=== PATIENT | female | born 1965 | race Caucasian/White ===

== ENCOUNTER 2022-07-19 14:45 | Outpatient (REF) | payer OTHER, SELFPAY ==
--- NOTE | 2022-07-19 11:00 | PAPFT_PTH ---
PATIENT: Mira Blackwood LOC: [facility]#:[id number] AGE/SX: 56/F ROOM: RE07/19/[address]: Sayra Hernandez : 1965 BED: DIS: 07/19/2022 SPEC #: [id number] RECD: 07/20/22 13:04 STATUS: JAMES HARTMAN #: [id number] NING: 07/19/22 11:[address]: Sayra Hernandez DEPT: [facility] Cytology RECD BY: Latasha Byrne Tissues: 1 - CX/ENDOCX FOR PAP SMEARS Procedures: PAP THIN PREP/UVM Screening HPV DNA PROBE Comments: [id number]
== END 2022-07-19 14:46 | disposition home or self-care (01) ==
LOC: NCHCN 14:45
PROVIDERS: Visit Provider Physician Assistant
DX: Z12.4 Encounter for screening for malignant neoplasm of cervix (principal); Z11.51 Encounter for screening for human papillomavirus (HPV)
CPT/HCPCS: 88142; 87624

== ENCOUNTER 2023-04-10 15:07 | Outpatient (REF) | payer OTHER, SELFPAY ==
[2023-04-10 19:16] LABS: HCT 40.8 % (36.0-46.0); HGB 13.4 g/dL (11.2-15.7); MCH 29.2 pg (27.0-33.0); MCHC 32.8 % (32.0-36.0); MCV 89 fL (80-95); MPV 10.7 fL (8.0-11.0); Platelet Count 255 10^3/uL (130-400); RBC 4.59 10^6/uL (3.93-5.22); RDW 13.1 % (11.7-14.6); RDW-SD 42.5 fL; WBC 6.89 10^3/uL (4.4-10.8)
[2023-04-10 19:42] LABS: ALT 22 U/L (14-59); AST 21 U/L (15-37); Albumin 3.8 g/dL (3.4-5.0); Alkaline Phosphatase 18 U/L (46-116); Anion Gap 11.1 mmol/L (3-11); BUN 14 mg/dL (7-18); Bilirubin, Total 0.3 mg/dL (0.2-1.0); CO2 24.9 mmol/L (21.0-32.0); Calcium 9.7 mg/dL (8.5-10.1); Chloride 103 mmol/L (98-107); Estimated GFR 65.71 (mL/min/1.73m2); Glucose 91 mg/dL (74-106); LDL CHOLESTEROL 142 mg/dL (<100); Potassium 4.2 mmol/L (3.5-5.1); Sodium 139 mmol/L (136-145); Total Protein 7.9 g/dL (6.4-8.2)
[2023-04-10 20:05] LABS: Hemoglobin A1C 5.6 % (<5.7)
== END 2023-04-10 15:08 | disposition home or self-care (01) ==
LOC: NCHCN 15:07
PROVIDERS: PCP Physician Assistant; Visit Provider Physician Assistant
DX: E06.3 Autoimmune thyroiditis (principal); R73.03 Prediabetes; N89.8 Other specified noninflammatory disorders of vagina; R32 Unspecified urinary incontinence
CPT/HCPCS: 80053; 83721; 85027; 83036; 84443; 87480; 87510; 87660

== ENCOUNTER 2024-02-08 15:50 | Outpatient (REF) | payer OTHER, SELFPAY ==
--- OUTSIDE RECORDS SUMMARY | 2024-02-08 15:52 | XMS_ITS | Referral Summary ---
Author Organization [facility] Address [address] [place] [address] Care Team Providers Care Nutrition Technician Name Role Phone Sayra Hernandez Primary Care Provider + Allergies Active Allergy Reactions Criticality Noted Date Comments Adhesive 09/15/2022 Sometimes gets rash with adhesive bandages Medications Medication Sig Dispensed Refills Start Date End Date Status Calcium Carbonate 600 mg calcium (1,500 mg) tablet Take 600 mg by mouth. 08/10/2022 Active MAGNESIUM CARBONATE ORAL Take by mouth. Active multivit with minerals/lutein (MULTIVITAMIN 50 PLUS ORAL) Take by mouth. Active Active Problems No known active problems Social History Tobacco Use Types Packs/Day Years Used Date Smoking Tobacco: Never Smokeless Tobacco: Never Tobacco Cessation:Counseling Given: Not Answered Sex and Gender Information Value Date Recorded Sex Assigned at Not on file Gender Identity Female 07/21/2022 11:30 EST Sexual Orientation Not on file Plan of Treatment Not on file Care Teams Nutrition Technician Relationship Specialty Start Date End Date Sayra Hernandez PA [address] [place] [id number] PCP - General 07/21/22
--- OUTSIDE RECORDS SUMMARY | 2024-02-08 15:52 | XMS_ITS | Encounter Summary ---
Author Organization [facility] Address [address] [place] [address] Care Team Providers Care Policy Adviser Name Role Phone Unavailable Primary Care Provider Unavailabl e Reason for Visit * Reason Onset Date Comments Establish Care 05/04/2022 Encounter Details Date Type Department Care Team (Late st Contact Info) Description 05/04/2022 Telephone [facility] Ophthalmology - Main [address] [address] Unknown, Doctor MD Establish Care Social History Tobacco Use Types Packs/Day Years Used Date Smoking Tobacco: Never Assessed Sex and Gender Information Value Date Recorded Sex Assigned at Not on file Gender Identity Female 07/21/2022 11:30 EST Sexual Orientation Not on file documented as of this encounter Miscellaneous Notes * Telephone Encounter - Meagan Ogden - 05/12/2022 0940 EST Scheduled * Telephone Encounter - Meagan Ogden - 05/10/2022 0843 EST LMOM * Telephone Encounter - Meagan Ogden - 05/10/2022 0743 EST Pt can be seen next available with a general farmworker. Schedule from the referral. * Telephone Encounter - Meagan Ogden - 05/05/2022 0717 EST RAQUEL form has been sent to patient. * Telephone Encounter - Lary Lewis - 05/04/2022 1231 EST Patient called back stating she needs a release form from our office so she can send it to her feather stitcher and retina provider. She has been discharged from her retina provider and is looking to establish care with an feather stitcher. Patient declined to schedule while on the phone stating that Cinthia was going to have her records reviewed by our providers to determine who she should be seen by. Please email the RAQUEL to: [email or web address] * Telephone Encounter - Cinthia Zambrano - 05/04/2022 1214 EST Pt just moved het from [place] and would like to establish care with us. She will get her notes faxed to us. documented in this encounter Plan of Treatment Not on file documented as of this encounter Visit Diagnoses Not on filedocumented in this encounter
--- OUTSIDE RECORDS SUMMARY | 2024-02-08 15:52 | XMS_ITS | Encounter Summary ---
Author Organization [facility] Address [address] [place] [address] Care Team Providers Care Scale Tester Name Role Phone Sayra Hernandez Primary Care Provider + Encounter Details Date Type Department Care Team (Late st Contact Info) Description 07/21/2022 Lab Requisition [facility] Pathology & Laboratory Medicine - [address] [address] Outr Resulting Lab, Provider Social History Tobacco Use Types Packs/Day Years Used Date Smoking Tobacco: Never Assessed Sex and Gender Information Value Date Recorded Sex Assigned at Not on file Gender Identity Female 07/21/2022 11:30 EST Sexual Orientation Not on file documented as of this encounter Plan of Treatment Not on file documented as of this encounter Procedures Procedure Name Priority Date/Time Associated Diagnosis Comments VITAMIN D (25,OH) Routine 07/21/2022 8:21 EST documented in this encounter Results * VITAMIN D (25,OH) (07/21/2022 8:21 EST) 25OH Vitamin D Tot 45 30 - 100 ng/mL 07/24/2022 11:28 EST [facility] Comment: Vitamin D 25,OH Interpretive Ranges: Deficiency: ??<10.0 ng/mL Insufficiency: ??10.0 - 30.0 ng/mL Sufficiency: ??30.0 - 100.0 ng/mL Toxicity: ??>100.0 ng/mL Blood VENOUS BLOOD / Unknown 07/21/2022 8:21 EST 07/21/2022 21:34 EST Provider Outr Resulting Lab CHEMISTRY & BLOOD GAS ORDERABLES [facility] [address] [place] [address] documented in this encounter Visit Diagnoses Not on filedocumented in this encounter Care Teams Scale Tester Relationship Specialty Start Date End Date Sayra Hernandez PA [address] [place] [id number] PCP - General 07/21/22 documented as of this encounter
--- OUTSIDE RECORDS SUMMARY | 2024-02-08 15:52 | XMS_ITS | Encounter Summary ---
Author Organization [facility] Address [address] [place] [address] Care Team Providers Care Liquefied Natural Gas Operator Name Role Phone Sayra Hernandez Primary Care Provider + Encounter Details Date Type Department Care Team (Late st Contact Info) Description 07/21/2022 Lab Requisition [facility] Pathology & Laboratory Medicine - [facility] [address] [place] [address] Sayra Hernandez PA [address] [place], [place] [address] Encounter for other general examination Social History Tobacco Use Types Packs/Day Years Used Date Smoking Tobacco: Never Assessed Sex and Gender Information Value Date Recorded Sex Assigned at Not on file Gender Identity Female 07/21/2022 11:30 EST Sexual Orientation Not on file documented as of this encounter Plan of Treatment Not on file documented as of this encounter Procedures Procedure Name Priority Date/Time Associated Diagnosis Comments PAP TEST Today 07/19/2022 11:00 EST Encounter for other general examination HPV DNA DETECTION WITH GENOTYPING, PCR Today 07/19/2022 11:00 EST Encounter for other general examination documented in this encounter Results * HUMAN PAPILLOMAVIRUS (HPV) DETECTION-HIGH RISK TYPES (07/19/2022 11:00 EST) HPV other High Risk types, PCR Negative Negative 08/07/2022 18:00 EST [facility] Comment:No E6 or E7 mRNA is detected from HPV types 16,18,31,33,35,39,45,51,52,56,58,59,66, and 68 by key account director mediated amplification. Papanicolaou smear specimen (specimen) CERVIX UTERI STRUCTURE / Unknown 07/19/2022 11:00 EST 08/04/2022 11:26 EST Sayra [facility] MICROBIOLOGY - G ENERAL ORDERABLES [facility] [address] [place] [id number] * PAP TEST (07/19/2022 11:00 EST) Specimens A. Cervix and/or Endocervix , ThinPrep Imaging System with Manual Evaluation 08/07/2022 18:00 [facility] Specimen Adequacy Satisfactory for Evaluation - transformation zone component present 08/07/2022 18:00 [facility] General Categorization Negative for intraepithelial lesion or malignancy 08/07/2022 18:00 [facility] Descriptive Diagnosis Reactive cellular changes associated with inflammation present (includes repair). 08/07/2022 18:00 [facility] Attestation By the signature below, the attending physician certifies that they have personally conducted a gross and/or microscopic examination of the described specimens and rendered or confirmed the above diagnosis. 08/07/2022 18:00 [facility] at 1800 Clinical History See below 08/08/19 23 18:00 [facility] HPV The result for the Human Papillomavirus (HPV) Detection-High Risk Types is Negative. No E6 or E7 mRNA is detected from HPV types 16,18,31,33,35,39 ,45,51,52,56,58,5 9,66, and 68 by key account director mediated amplification.Carrie ting was performed on specimen [id number] and was resulted on 08/07/2022 1800 EST by JACKSON, LAB INSTRUMENT RESULTS IN 08/07/2022 18:00 [facility] Performing Lab [facility] 08/07/2022 18:00 EST [facility] Scanned Images 08/07/2022 18:00 EST [facility] Papanicolaou smear specimen (specimen) CERVIX UTERI STRUCTURE / Unknown 07/19/2022 11:00 EST 07/21/2022 12:29 EST Sayra [facility] PATHOLOGY ORDERA BLES Performing Organization Address City/State/[facility] Co de Phone Number [facility] [address] [place] [address] documented in this encounter Visit Diagnoses Diagnosis Encounter for other general examination documented in this encounter Care Teams Liquefied Natural Gas Operator Relationship Specialty Start Date End Date Sayra Hernandez PA [address] [place] [id number] PCP - General 07/21/22 documented as of this encounter
--- OUTSIDE RECORDS SUMMARY | 2024-02-08 15:52 | XMS_ITS | Clinical Summary ---
Author Organization [facility] Address [address] [place] [address] Care Team Providers Care Architectural Intern Name Role Phone Sayra Hernandez Primary Care [...] Active Active Problems No known active problems Surgical History Surgery Date Site/Laterality Comments RETINAL DETACHMENT SURGERY 06/04/2009 - 06/03/2010 Right CATARACT REMOVAL WITH IMPLANT 06/04/2009 - 06/03/2010 Ri ght INTRAOCULAR LENS PROSTHESIS INSERTION Medical History Medical History Date Comments Other states following surgery of eye and adnexa Cataract Family History Medical History Relation Comments Glaucoma Mother Blindness Neg Hx Cataract Neg Hx Macular Degeneration Neg Hx Retinal Detachment Neg Hx Relation Status Comments Mother Social History Tobacco Use Types Packs/Day Years Used Date Smoking Tobacco: Never Smokeless Tobacco: Never Tobacco Cessation:Counseling Given: Not Answered Sex and Gender Information Value Date Recorded Sex Assigned at Not on file Gender Identity Female 07/21/2022 11:30 EST Sexual Orientation Not on file Obstetrics History Plan of Treatment Health Maintenance Due Date Last Done Comments Hepatitis C Screen 1965 Hepatitis B Vaccine (1 of 3 - 19+ 3-dose series) 08/15 COVID-19 Vaccine ( season) 2023 Care Teams Architectural Intern Relationship Specialty Start Date End Date Sayra Hernandez PA [address] [place] [id number] PCP - General 07/21/22
--- OUTSIDE RECORDS SUMMARY | 2024-02-08 15:52 | XMS_ITS | Encounter Summary ---
Author Organization [facility] Address [address] [place] [address] Care Team Providers Care Customer Operations Specialist Name Role Phone Sayra Hernandez Primary Care Provider + Reason for Visit * Reason Comments Follow-up Encounter Details Date Type Department Care Team (Late st Contact Info) Description 09/17/2023 10:15 EDT Office Visit [facility] Ophthalmology - [address] [id number] Isabel Shore MD [address] [place] [address], [address] [place] [address] Social History Tobacco Use Types Packs/Day Years Used Date Smoking Tobacco: Never Smokeless Tobacco: Never Sex and Gender Information Value Date Recorded Sex Assigned at Not on file Gender Identity Female 07/21/2022 11:30 EST Sexual Orientation Not on file documented as of this encounter Progress Notes * Isabel Shore MD - 09/17/2023 1015 EDT Chief Complaint Patient presents with Follow-up HPI F/u OHTN right, hx RD right eye, vision may be a little worse at near, no flashes or floaters, no eye pain, no gtts HPI The patient is a 58 y.o. female not noticing much change to her vision. HO RD right eye after CE Right Eye: Left Eye: Visual Aid: Current Rx Age Location: Pain: 0 - No pain Quality: Severity: Duration: Timing: Lasts: Context: Modifying factors: Associated Signs & Symptoms: Attestation: ROS Constitutional: ENT/Mouth Cardiovascular: Respiratory: Gastrointestinal: Genitourinary: Musculoskeletal: Integumentary: Neurologic: Psychiatric: Endocrine: Hematologic: Immunologic: Braided Rug Maker: Exposures: Other: Attestation: Allergies include: Adhesive There is no problem list on file for this patient. No outpatient medications have been marked as taking for the 09/17/23 encounter (Office Visit) with Isabel Shore MD. Past Medical History: Diagnosis Date Cataract Other states following surgery of eye and adnexa Past Surgical History: Procedure Laterality Date CATARACT REMOVAL WITH IMPLANT Right 2010 INTRAOCULAR LENS PROSTHESIS INSERTION RETINAL DETACHMENT SURGERY Right 2009 Family History Problem Relation Age of Onset Glaucoma Mother Retinal Detachment Neg Hx Macular Degeneration Neg Hx Cataract Neg Hx Blindness Neg Hx Patient reports that she has never smoked. She has never used smokeless tobacco. Recent HbA1c: No results found for: HGBA1C Base Eye Exam Visual Acuity (Snellen - Linear) Right Left Dist cc 20/25 -1 20/80 Dist ph cc 20/30 -2 Near cc J1+/- J1+/- Correction: Glasses Tonometry (Applanation, 10:31) Right Left Pressure 25 19 Pupils Dark Light Shape React Right 5 Round Left 4.5 4 Round Brisk ?APD right eye 8 mm both pupils in dark conditions per LPA With turning on lights, the left eye becomes 5 mm, right eye 7 mm Right eye 4 mm and 3 mm left eye with direct light Visual Umaña Right Left Full Full Extraocular Movement Right Left Full, Ortho Full, Ortho Neuro/Psych Oriented x3: Yes Mood/Affect: Normal Dilation Both eyes: Phenylephrine 2.5%, Tropicamide 1% @ 11:39 Additional Tests Color Right Left Ishihara /13 / Slit Lamp and Fundus Exam External Exam Right Left External Normal Normal Slit Lamp Exam Right Left Lids/Lashes Normal Normal Conjunctiva/Sclera White and quiet White and quiet Cornea Clear Clear Anterior Chamber Deep and quiet, air bubble inferior near iris (gas) Deep and quiet Iris Dilated Dilated Lens Posterior chamber intraocular lens 2-3+ Nuclear sclerosis Anterior Vitreous Normal Dense vitreous strands Fundus Exam Right Left Disc Healthy Rim Healthy Rim C/D Ratio 0.2 0.2 Macula Normal Normal Vessels Normal Normal Periphery scleral buckle 360, looks great Normal Refraction Wearing Rx Sphere Cylinder Unity Right Left Age: 2 years Wearing Rx #2 Sphere Cylinder Unity Right -5.25 +1.50 090 Left -1.25 +0.25 066 Type: DVO Wearing Rx #3 Sphere Cylinder Unity Right -5.25 +1.50 090 Left -1.25 +0.25 066 Type: DVO Final Rx Sphere Cylinder Unity Add Right -5.50 +1.50 080 +2.00 Left -2.25 +0.50 066 +2.00 Type: PAL Expiration Date: 09/16/2024 DIAGNOSTIC TESTS: OCT, Optic Nerve - OU - Both Eyes OCT REPORT Indications: Findings: Right Eye: Left Eye: RNFL: 99 microns 93 microns Optic Nerve Head: 0.45 0.40 Signal Strength 6/10 8/10 Fast Macula: Small ERM right Original test to be found in patients shadow chart IMPRESSION & PLAN: History of CE right eye [address] right eye 2009 shortly after the cataract procedure Repair of RD right eye 2009 with SB and PFO gas, a residual bubble noted in AC since then IOPs right eye historically higher than left eye and I suspect this may be related to the gas, nerve does not look like glaucoma Cataract left eye is developing a myopic shift, and somewhat clinically significant. DW patient- observe. Katie 235/19 Pachy [place] 542/549 PLAN: rx rv one year for dfe Copy of last years M at no charge given to patient by request Mira was seen today for follow-up. Diagnoses and all orders for this visit: Ocular hypertension, right - OCT, OPTIC NERVE - OU - BOTH EYES History of detached retina repair Nuclear senile cataract of left eye I have reviewed the patient's past medical, family, social and surgical history. I have also reviewed the patient's medications, allergies, and problem list. I performed my own HPI and have reviewed the tech's ROS as well. I personally completed this exam myself. Isabel Shore MD I am scribing for Dr. Isabel Shore while she is personally performing the service. Signature: NARESH Campos The patient was instructed to call our office or go to emergency room if worse vision, worse symptoms, or new/other concerns arise. documented in this encounter Plan of Treatment Not on file documented as of this encounter Procedures Procedure Name Priority Date/Time Associated Diagnosis Comments OCT, OPTIC NERVE - OU - BOTH EYES Routine 09/17/2023 13:55 EDT Ocular hypertension, right documented in this encounter Results * OCT, OPTIC NERVE - OU - BOTH EYES (09/17/2023 13:55 EDT) Narrative [facility] OPHTH[facility] - 09/17/2023 13:55 EDT Table formatting from the original result was not included. OCT REPORT Indications: ?? Findings: Right Eye: Left Eye: RNFL: ??99 microns 93 microns Optic Nerve Head: 0.45 0.40 Signal ??Strength 10 810 Fast Macula: Small ERM right ?? Original test to be found in patients shadow chart Isabel Shore MD OPHTH TOMOGRAPHY [facility] OPHTH[facility] documented in this encounter Visit Diagnoses Diagnosis Ocular hypertension, right- Primary History of detached retina repair Personal history of surgery to other organs Nuclear senile cataract of left eye documented in this encounter Eye Exam Visual Acuity (Snellen - Linear) Right eye Left eye Dist cc 20/25 -1 20/80 Dist ph cc 20/30 -2 Near cc J1+/- J1+/- Correction: Glasses Tonometry (Applanation, 10:31) Right eye Left eye Pressure 25 19 Pupils Dark Light Shape React Right eye 5 Round Left eye 4.5 4 Round Brisk ?APD right eye 8 mm both pupils in dark conditions per LPA With turning on lights, the left eye becomes 5 mm, right eye 7 mm Right eye 4 mm and 3 mm left eye with direct light Visual Umaña Right eye Left eye Full Full Extraocular Movement Right eye Left eye Full, Ortho Full, Ortho Neuro/Psych Oriented x3: Yes Mood/Affect: Normal Dilation Both eyes: Phenylephrine 2.5 %, Tropicamide 1% @ 11:39 Color Right eye Left eye Ishihara External Exam Right eye Left eye External Normal Normal Slit Lamp Exam Right eye Left eye Lids/Lashes Normal Normal Conjunctiva/Sclera White and quiet White and herrera et Cornea Clear Clear Anterior Chamber Deep and quiet, air bubble inferior near iris (gas) Deep and quiet Iris Dilated Dilated Lens Posterior chamber intraocular le ns 2-3+ Nuclear sclerosis Anterior Vitreous Normal Dense vitreous strands Fundus Exam Right eye Left eye Disc Healthy Rim Healthy Rim C/D Ratio 0.2 0.2 Macula Normal Normal Vessels Normal Normal Periphery scleral buckle 360, looks great Normal Wearing Rx #1 Sphere Cylinder Unity Right eye Left eye Age: 2 years Wearing Rx #2 Sphere Cylinder Unity Right eye -5.25 +1.50 090 Left eye -1.25 +0.25 066 Type: DVO Wearing Rx #3 Sphere Cylinder Unity Right eye -5.25 +1.50 090 Left eye -1.25 +0.25 066 Type: DVO Final Rx Sphere Cylinder Unity Add Right eye -5.50 +1.50 080 +2.00 Left eye -2.25 +0.50 066 +2.00 Type: PAL Expiration Date: 09/16/2024 Care Teams Customer Operations Specialist Relationship Specialty Start Date End Date Sayra Hernandez PA [address] [place] [id number] PCP - General 07/21/22 documented as of this encounter
--- OUTSIDE RECORDS SUMMARY | 2024-02-08 15:52 | XMS_ITS | Continuity of Care Document ---
Author Organization [email or web address] Address [address] [place] [address] Phone Care Team Providers Care Devulcanizer Operator Name Role Phone Aissatou CRAWFORD, Yonatan Unavailable Unavailable Allergies, Adverse Reactions, Alerts Substance Reaction Status Criticality No Known Allergies Active No Inform ation Medications Medication Instructions Dosage Effective Dates (start - stop) Status Comments Thera Tears 0.25 % drops in a dropperette - Active Vitamin D3 1,000 unit capsule take 1 Capsule by Oral route once - Active Procedures Procedure Date Ophth Serv: Med Exam; Interm E 11 Vitrectomy PPV ASC RT Return To OR Postop F/u Visit [employer] 1 Repr Retinal Detach; W/vitrect RT ASC De Advance Directives Directive Yes / No Effective Date File Name No Information Encounters Encounter Description Practice Location Reason(s) For Visit Diagnoses Date Provider Providers Copied on Encounter [email or web address], [address], [place], [id number], tel:[phone] Pawan decreased VA (chief complaint) Other retinal detachmentsAge- related nuclear cataract, left eyePresence of intraocular lensPuckering of macula, right eye 9 Aissatou Tam. [address], [place], [id number], . tel:[phone] [email or web address], [address], [place], [id number], tel: [place] Floaters and flashes (chief complaint) Other retinal detachmentsPuck ering of macula, right eyeAge-related nuclear cataract, left eyePresence of intraocular lens 0- 8 Reyez Yonatan. [address], [place], [id number], [place]. tel: [email or web address], [address], [place], [id number], tel: [place] floaters (chief complaint) Other retinal detachmentsPuck ering of macula, right eyePresence of intraocular lensAge-related nuclear cataract, left eye 6 Reyez Yonatan. [address], [place], [id number], [place]. tel: [facility], [address] [place], [place], [id number], [place] tel: [place] cataract/s (chief complaint) Old Detachment, PartialMacular PuckeringLens Replacement NecSenile Nuclear Cataract 3 No Information [facility], [address], [place], [id number], [place] tel:21 [place] S/P OD--Macula -off RD repair with SB/PPV (/... (chief complaint) No Information 1 Reyez Yonatan. [address] [place], [place], [id number], [place]. tel:21 [facility], [address] [place], [place], [id number], [place] tel: [phone] Pawan No Information 1 Reyez Yonatan. [address], [place], [id number], [place]. tel: [facility], [address], [place], [id number], [place] tel:[phone] Pawan No Information 1 Reyez Yonatan. [address] [place], [place], [id number], [place]. tel:[phone] [facility], [address], [place], [id number], tel:[phone] Pawan No Information 0 Reyez Yonatan. [address] [place], [place], [id number], [place]. tel:[phone] Family History Family Member Type Diagnosis Age At Onset Mother Problem (finding) glaucoma Multiple Problem (finding) Diabetes mellitus Father Problem (finding) Cancer Payers Payer name Insurance type Covered libertarian ID Andrew phillisp(s) Reagan CI [id number] Social History Type Description Quantity Date Captured Comments Alcohol Use Details a variable a mount 5 time a week Caffeine Use Details and coffee 1 cup per day Tobacco Use Status No Information Smoking Status Never smoker Non-Smoking Tobacco Use Details : No Details Available : No Details Available Sex Female Chief Complaint And Reason For Visit From encounter dated '07/31/2018 09:50'. decreased VA (chief complaint). Description: The 52 year old female presents for 1 year OCT OU, re-evaluation of ERM OD/h/o multiple RD's OD. Patient c/o decreased/worse VA OU, constant, mild, gradually worsening x last exam. She notes intermittent, mild distortion OD only, but not worse, unchanged x last visit. She denies any floaters, flashes or pain OU x last year. Reason For Referral Reason For Referral No Information History Of Present Illness Encounter Date Complaint History Of Prese nt Illness decreased VA The 52 year old female presents for 1 year OCT OU, re-evaluation of ERM OD/h/o multiple RD's OD. Patient c/o decreased/worse VA OU, constant, mild, gradually worsening x last exam. She notes intermittent, mild distortion OD only, but not worse, unchanged x last visit. She denies any floaters, flashes or pain OU x last year. Floaters and flashes The 51 year old female presents for evaluation of flashes and floaters due to hx of retinal detachment. Patient states no changes in vision OU since last visit. She states there was 1 episode of flashes of lights OS, but never happened again. The episode didn't last long. She denies floaters, pain or distortion OU. floaters The 49 year old female presents for evaluation of floaters in the right eye. Pt denies any flashes or floaters OS. Pt c/o of decreased vision OD. Functional Status Date Functional Assessmen t No Information Instructions Date Instruction Additional Infor mation Impression/Plan Related to Age-r elated nuclear cataract, left eye Impression/Plan - Ob serve, no significant distortion of foveal architecture on exam or OCT testing. Related to Puckering of macula, right eye Impression/Plan - Observe. Relat ed to Age-related nuclear cataract, left eye Impression/Plan - Re juan remains completely attached SD 360 exam. Residual PFO bubbles in AC, but her cornea continues to do well. Discussed options of removal versus observation. Patient elects to continue observation at this time as they are not significantly symptomatic for her. She will continue to see Dr. Chang annually. RTC PRN Related to Other retinal detachments Impression/Plan - Th ere are AC and intracapsular PFO bubbles but she is not interested in removal at this time. Related to Presence of intraocular lens Impression/Plan - Th ere are AC and intracapsular PFO bubbles but she is not interested in removal at this time. Related to Presence of intraocular lens Impression/Plan - Re juan remains completely attached SD 360 exam. Residual PFO bubbles in AC, but her cornea continues to do well. Discussed options of removal versus observation. Patient elects to continue observation at this time as they are not significantly symptomatic for her. RTC 12 months OCT OU Related to Other retinal detachments Impression/Plan - Ob serve, no significant distortion of foveal architecture on exam or OCT testing. Related to Puckering of macula, right eye Impression/Plan - Observe. Relat ed to Age-related nuclear cataract, left eye Impression/Plan - Observe. Relat ed to Age-related nuclear cataract, left eye Impression/Plan - Ob serve, no signficant distortion of foveal architecture. Related to Puckering of macula, right eye Impression/Plan - Th ere is intracapsular PFO bubbles but she is not interested in removal at this time. Related to Presence of intraocular lens Impression/Plan - Re juan remains completely attached SD 360 exam. She does have residual PFO, but her cornea continues to do well. Discussed options of removal versus observation. Patient elects to observe at this time as they are not significantly symptomatic for her. She may now proceed with new MRx for vision improvement. Thanks Enrique. RTC 12 months OCT OU Related to Other retinal detachments Cataract, OS - Observe. Related to Senile Nuclear Cataract PCIOL, OD - There is intracapsular PFO bubbles but she is not interested in removal at this time. Related to Pseudophakia S/P Retinal Detachme nt Repair, ODS/p SB, PPV (05/30/10 SM)S/p Removal of residual PFO (07/11/10 SM) - Ms. Blackwood continues to do well after SB/PPV for a macula-off rhegmatogenous retinal detachment in her right eye. Her retina remains completely attached. She does have residual PFO, but her cornea continues to do well. Discussed options of removal versus observation. Patient elects to observe at this time as they are not significantly symptomatic for her. Thank you for allowing me to participate in her care. * 12 months with SM Related to Old Detachment, Partial Mild Epiretinal Memb cara, OD - Observe, no signficant distortion of foveal architecture. Related to Macular Puckering Cataract, OS - Mild, observe. MIld Epiretinal Memb cara, OD - Observe, no signficant distortion of foveal architecture. Assessments Type Assessment Date assessment Other retinal detachments impression S/P Retinal Detachme nt Repair, ODS/p SB, PPV (05/30/10 SM)S/p Removal of residual PFO (07/11/10 SM) assessment Age-related nuclear cataract, le ft eye impression Age-related nuclear cataract, le ft eye: H25.12. OS assessment Presence of intraocular lens Jul impression Presence of intraocular lens: Z9 6.1. OD assessment Puckering of macula, right eye F impression Puckering of macula, right eye: H35.371. OD Patient Care Teams Name Effective Dates (start - stop) Status Members No Information
--- OUTSIDE RECORDS SUMMARY | 2024-02-08 15:52 | XMS_ITS | Patient Health Record ---
Author Organization [facility] Address [address] [place] [address] [place] [address] Care Team Providers Care Multi Craft Maintenance Technician Name Role Phone Tristan Diamond Primary Care Provider Unavailab Christopher Irene Unavailable [phone] Singh Guzman Unavailable Unavailable REASON FOR REFERRAL No Information MEDICATIONS Medication SIG (Take, Route, Fr equency, Duration) Notes Start Date End Date Status Multivitamin Active Vitamin D Active Omeprazole 20 MG 1 capsule 60 minutes before morning meal Orally Once a day for 30 Ac tive SOCIAL HISTORY Sex Assigned At : Social History Observation Description Sex Assigned At Unknown PROBLEMS Problem Type ICD Code Onset Dates Problem Status W/U Status Risk SNOMED Code Notes Problem Sore throat (J02.9) Active confirmed 26 1288054 Problem Nasal turbinate hypertrophy (J34.3) Active confirmed 73984874 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) Active confirmed 4194469 Problem Laryngopharyngeal reflux (LPR) (K21.9) Active confirmed 626416100 Problem DNS (deviated nasal septum) (J34.2) Active confirmed 375592672 Problem Disorder of nasal cavity (J34.89) Active confirmed 666544404 PLAN OF TREATMENT No Information Insurance Providers Payer Name Payer Address Payer Phone Subscriber Number Group Number Insured Name Patient Relationship to Insured Coverage Start Date Coverage End Date [employer] Kimberly BEGUM [id number] [place] [address] [id number] Nathaniel Mckenzie Spouse - patient is the spouse of the insured MEDICAL (GENERAL) HISTORY Medical History History ICD Code Cataracts Hypothyroidism Headaches Heart palpitations PATIENT IS ALLERGIC TO ADHESIVE Surgical History Surgery Date(Month/Year) 01/1993 03/2003
--- OUTSIDE RECORDS SUMMARY | 2024-02-08 15:52 | XMS_ITS | Encounter Summary ---
Author Organization [facility] Address [address] [place] [address] Care Team Providers Care Preload Supervisor Name Role Phone Sayra Hernandez Primary Care Provider + Reason for Visit * Reason Comments Eye Exam * Consult, Test and Treat (Routine) - Receiving Office to Obtain Authorization Specialty Diagnoses / Procedures [facility] Referred To Contact Diagnoses Pseudophakia of right eye Vitreous hemorrhage of right eye ([facility]) [facility] [address]hthalmology [address] [place] [address] Referral ID Status Reason Start Date Expiration Date Visits Requested Visits Authorized [id number] Receiving Office to Obtain Authorization 1 1 Encounter Details Date Type Department Care Team (Late st Contact Info) Description 09/15/2022 9:15 EDT Office Visit [facility] Ophthalmology - [address] [id number] Isabel Shore MD [address] [place] [address], [address] [place] [address] Social History Tobacco Use Types Packs/Day Years Used Date Smoking Tobacco: Never Smokeless Tobacco: Never Tobacco Cessation:Counseling Given: Not Answered Sex and Gender Information Value Date Recorded Sex Assigned at Not on file Gender Identity Female 07/21/2022 11:30 EST Sexual Orientation Not on file documented as of this encounter Progress Notes * Isabel Shore MD - 09/15/2022 0915 EDT Chief Complaint Patient presents with ??? Eye Exam Comments New patient eye exam -- relocated here from [place]. Prior records indicate h/o RD repair right eye by scleral buckle (05/2010) with retained PFO. H/O cataract surgery right eye (02/2010), mild cataract left eye. H/O mild ocular hypertension of right eye. Vision is good / stable in glasses, does not wearCLs. She removes glasses at near to read, may be considering bifocals soon. Eyes feel comfortable. Pt is pre-diabetic (not on meds). Mother with h/o glaucoma. HPI The patient is a 57 y.o. female Right Eye: NL Left Eye: NL Visual Aid: Glasses Current Rx Age Location: Both eyes Pain: 0 - No pain Quality: Severity: Mild Duration: Years Timing: Lasts: Context: New patient eye exam -- Modifying factors: Prior records indicate h/o RD repair right eye by scleral buckle (05/2010) with retained PFO. H/O cataract surgery right eye (02/2010), mild cataract left eye. Associated Signs & Symptoms: Vision is good / stable in glasses, does not wear CLs. She removesglasses at near to read. Eyes feel comfortable. Pt is pre- diabetic (not on meds). Attestation: ROS Constitutional: NL ENT/Mouth Cardiovascular: Respiratory: NL Gastrointestinal: NL Genitourinary: Musculoskeletal: NL Integumentary: NL Neurologic: NL Psychiatric: NL Endocrine: Thyroid problems (Hashimotos thyroid, pre-DM) Hematologic: NL Immunologic: NL Permaculture Designer: Exposures: None Other: Attestation: Allergies include: Adhesive There is no problem list on file for this patient. Outpatient Medications Marked as Taking for the 09/15/22 encounter (Office Visit) with Isabel Shore MD Medication Sig ??? Calcium Carbonate 600 mg calcium (1,500 mg) tablet Take 600 mg by mouth. ??? MAGNESIUM CARBONATE ORAL Take by mouth. ??? multivit with minerals/lutein (MULTIVITAMIN 50 PLUS ORAL) Take by mouth. Past Medical History: Diagnosis Date ??? Cataract ??? Other states following surgery of eye and adnexa Past Surgical History: Procedure Laterality Date ??? CATARACT REMOVAL WITH IMPLANT Right 2009 ??? INTRAOCULAR LENS PROSTHESIS INSERTION ??? RETINAL DETACHMENT SURGERY Right 2010 Family History Problem Relation Age of Onset ??? Glaucoma Mother ??? Retinal Detachment Neg Hx ??? Macular Degeneration Neg Hx ??? Cataract Neg Hx ??? Blindness Neg Hx Patient reports that she has never smoked. She has never used smokeless tobacco. Recent HbA1c: No results found for: HGBA1C Base Eye Exam Visual Acuity (Snellen - Linear) Right Left Dist cc 20/25 +2 20/60 -2 Dist ph cc 20/30 -1 Correction: Glasses Tonometry (Applanation, 9:56) Right Left Pressure 23 19 Pachymetry (Citlaly) Right Left Thickness 542 549 Pupils Dark Light Shape React APD Right 5.5 5 Round Minimal None Left 4.5 3 Round Brisk None Visual Umaña (Counting fingers) Right Left Full Full Extraocular Movement Right Left Full, Ortho Full, Ortho Neuro/Psych Oriented x3: Yes Mood/Affect: Normal Dilation Both eyes: Tropicamide 1% @ 9:56 Slit Lamp and Fundus Exam External Exam Right Left External Normal Normal Slit Lamp Exam Right Left Lids/Lashes Normal Normal Conjunctiva/Sclera White and quiet White and quiet Cornea Clear Clear Anterior Chamber Deep and quiet, air bubble inferior near iris (gas) Deep and quiet Iris Dilated Dilated Lens Posterior chamber intraocular lens 2+ Nuclear sclerosis Anterior Vitreous Normal No PVD Fundus Exam Right Left Disc Healthy Rim Healthy Rim C/D Ratio 0.2 0.2 Macula Normal Normal Vessels Normal Normal Periphery scleral buckle 360, looks great Normal Refraction Wearing Rx Sphere Cylinder [place] Right -5.25 +1.50 090 Left -1.25 +0.25 066 Age: 1 yr Type: DVO Manifest Refraction Sphere Cylinder [place] Dist VA Add Right -5.50 +1.50 080 20/20 +2.00 Left -2.25 +0.50 066 20/40 +2.00 Final Rx Sphere Cylinder [place] Dist VA Add Right -5.50 +1.50 080 20/20 +2.00 Left -2.25 +0.50 066 20/40 +2.00 Expiration Date: 09/16/2023 IMPRESSION & PLAN: History of CE right eye [address] right eye 2009 shortly after the cataract procedure Repair of RD right eye 2010 with SB and PFO gas, a residual bubble noted in AC since then IOPs right eye historically higher than left eye and I suspect this may be related to the gas, nerve does not look like glaucoma Cataract left eye is developing a myopic shift, and somewhat clinically significant. Given the lackof a PVD in that eye, would address refractively at this time. dw patient. Katie 23 [place]achy [place] 542/549 PLAN: rx rv one year for dfe and baseline rnfl/ mac Mira was seen today for eye exam. Diagnoses and all orders for this visit: History of detached retina repair Nuclear senile cataract of left eye Ocular hypertension, right Other orders - Calcium Carbonate 600 mg calcium (1,500 mg) tablet; Take 600 mg by mouth. - MAGNESIUM CARBONATE ORAL; Take by mouth. - multivit with minerals/lutein (MULTIVITAMIN 50 PLUS ORAL); Take by mouth. I have reviewed the patient's past medical, [...] documented as of this encounter Visit Diagnoses Diagnosis History of detached retina repair- Primary Personal history of surgery to other organs Nuclear senile cataract of left eye Ocular hypertension, right Presbyopia of both eyes documented in this encounter Historical Medications * This list may reflect changes made after this encounter. Medication Sig Dispensed Refills Start Date End Date multivit with minerals/lutein (MULTIVITAMIN 50 PLUS ORAL) Take by mouth. MAGNESIUM CARBONATE ORAL Take by mouth. Calcium Carbonate 600 mg calcium (1,500 mg) tablet Take 600 mg by mouth. 08/10/2022 added in this encounter Eye Exam Visual Acuity (Snellen - Linear) Right eye Left eye Dist cc 20/25 +2 20/60 -2 Dist ph cc 20/30 -1 Correction: Glasses Tonometry (Applanation, 9:56) Right eye Left eye Pressure 23 19 Pachymetry ([place]) Right eye Left eye Thickness 542 549 Pupils Dark Light Shape React APD Right eye 5.5 5 Round Minimal None Left eye 4.5 3 Round Brisk None Visual Umaña (Counting fingers) Right eye Left eye Full Full Extraocular Movement Right eye Left eye Full, Ortho Full, Ortho Neuro/Psych Oriented x3: Yes Mood/Affect: Normal Dilation Both eyes: Tropicamide 1% @ 9:56 External Exam Right eye Left eye External Normal Normal Slit Lamp Exam Right eye Left eye Lids/Lashes Normal Normal Conjunctiva/Sclera White and quiet White and herrera et Cornea Clear Clear Anterior Chamber Deep and quiet, air bubble inferior near iris (gas) Deep and quiet Iris Dilated Dilated Lens Posterior chamber intraocular le ns 2+ Nuclear sclerosis Anterior Vitreous Normal No PVD Fundus Exam Right eye Left eye Disc Healthy Rim Healthy Rim C/D Ratio 0.2 0.2 Macula Normal Normal Vessels Normal Normal Periphery scleral buckle 360, looks great Normal Wearing Rx Sphere Cylinder [place] Right eye -5.25 +1.50 090 Left eye -1.25 +0.25 066 Age: 1 yr Type: DVO Manifest Refraction Sphere Cylinder [place] Dist VA Add Right eye -5.50 +1.50 080 20/20 +2.00 Left eye -2.25 +0.50 066 20/40 +2.00 Final Rx Sphere Cylinder [place] Dist VA Add Right eye -5.50 +1.50 080 20/20 +2.00 Left eye -2.25 +0.50 066 20/40 +2.00 Expiration Date: 09/16/2023 Care Teams Preload Supervisor Relationship Specialty Start Date End Date Sayra Hernandez PA [address] [place] [id number] PCP - General 07/21/22 documented as of this encounter
[2024-02-08 19:29] LABS: ALT 27 U/L (14-59); AST 26 U/L (15-37); Alkaline Phosphatase 19 U/L (46-116); Anion Gap 7.5 mmol/L (3-11); BUN 11 mg/dL (7-18); Bilirubin, Total 0.34 mg/dL (0.2-1.0); CO2 29.5 mmol/L (21.0-32.0); Calcium 9.5 mg/dL (8.5-10.1); Chloride 104 mmol/L (98-107); Glucose 93 mg/dL (74-106); Potassium 3.9 mmol/L (3.5-5.1); Sodium 141 mmol/L (136-145); TSH (W/Ref FT4) 4.27 uIU/mL (0.36-3.74); Total Protein 7.8 g/dL (6.4-8.2)
[2024-02-08 20:06] LABS: FREE T4 0.84 ng/dL (0.76-1.46)
[2024-02-11 09:32] LABS: HIV-1/2 Ag & Ab Screen Negative (Negative)
[2024-02-11 09:39] LABS: Hepatitis C Ab w Rflx HCV PCR Negative (Negative)
== END 2024-02-08 15:51 | disposition home or self-care (01) ==
LOC: NCHCN 15:50
PROVIDERS: PCP Physician Assistant; Visit Provider Physician Assistant
DX: R73.03 Prediabetes (principal); E06.3 Autoimmune thyroiditis; Z11.4 Encounter for screening for human immunodeficiency virus [HIV]; Z11.59 Encounter for screening for other viral diseases
CPT/HCPCS: 80053; 86803; 87389; 84439; 84443

== ENCOUNTER 2025-03-05 10:07 | Outpatient (REF) | payer OTHER, SELFPAY ==
[2025-03-05 19:12] LABS: ALT 16 U/L (14-59); AST 17 U/L (15-37); Albumin 3.8 g/dL (3.4-5.0); Alkaline Phosphatase 21 U/L (46-116); Anion Gap 9.7 mmol/L (3-11); BUN 9 mg/dL (7-18); Bilirubin, Total 0.3 mg/dL (0.2-1.0); CO2 29.3 mmol/L (21.0-32.0); Calcium 9.2 mg/dL (8.5-10.1); Calculated LDL 132 mg/dL (<100); Chloride 103 mmol/L (98-107); Cholesterol 209 mg/dL (<200); Estimated GFR 73.64 (mL/min/1.73m2); Glucose 95 mg/dL (74-106); HDL Cholesterol 55 mg/dL (>or=50); Potassium 4.5 mmol/L (3.5-5.1); Sodium 142 mmol/L (136-145); TSH (W/Ref FT4) 3.06 uIU/mL (0.36-3.74); Total Protein 7.7 g/dL (6.4-8.2); Triglyceride 111 mg/dL (<150)
== END 2025-03-05 10:08 | disposition home or self-care (01) ==
LOC: NCHCN 10:07
PROVIDERS: PCP Physician Assistant; Visit Provider Physician Assistant
DX: E78.5 Hyperlipidemia, unspecified (principal); E06.3 Autoimmune thyroiditis
CPT/HCPCS: 80053; 80061; 84443